=== PATIENT | female | born 1970 | race African-American/Black ===

== ENCOUNTER → 2022-03-19 09:42 | Outpatient (CLI) | payer BC, SELFPAY ==
--- NOTE | ~2022-03-19 | MMUS_ITS ---
EXAMINATION: MM diagnostic elizabeth BI w grace, US breast RT complete, US breast LT limited HISTORY: History of fibrocystic disease. TECHNIQUE: Additional 3-D tomosynthesis images of the breasts were performed and synthetic 2-D images were generated. CAD analysis was submitted and interpreted. High resolution complete right and limit ed left breast ultrasound was performed. COMPARISON: Comparison to multiple prior studies sequentially, with oldest reviewed study dated 08/07. BREAST PARENCHYMAL COMPOSITION: Breast composed of scattered areas of fibroglandular density FINDINGS: MAMMOGRAPHIC FINDINGS: Bilateral breast asymmetries are stable. No new masses, calcifications or architectural distortion. ULTRASOUND: Complete right breast ultrasound: At 4:00, 3 cm from the nipple, there is an oval cystic mass measuri ng up to 1 cm, most likely benign cyst or focally dilated duct. At 6:00 near the arterial lobe there is a mildly prominent ducts. At 10:00, 7 cm from the nipple, there is a round hypoechoic mass with en hanced or transmission measuring 6 mm, compatible with a complicated cyst. Also at this location ther e is a similar appearing 9 mm hypoechoic mass with low level internal echoes, most likely complicated cysts. At 10:00, 5 cm from the nipple there is a oval hypoechoic mass measuring 9 x 5 x 7 mm, most l ikely benign cyst. At 10:00, near the areola there is an oval hypoechoic mass measuring 9 x 2 x 3 mm with posterior enhancement, parallel orientation and low-level internal echoes, most likely benign. Left breast ultrasound: At 12:00, 4 cm from the nipple there is a 6 mm cyst. Also at this location th ere is a oval circumscribed hypoechoic mass with parallel orientation measuring 6 mm maximum dimensio n, likely benign. At 1:00 near the arterial lobe there is an 8 mm cyst. IMPRESSION: 1. Probable benign bilateral sonographic masses. Stable bilateral mammogram. 2. Recommend 6 month follow-up limited bilateral breast ultrasound. BI-RADS category 3, probably benign findings. Reviewed, dictated and finalized at location B. IMPRESSION: 1. Probable benign bilateral sonographic masses. Stable bilateral mammogram. 2. Recommend 6 month follow-up limited bilateral breast ultrasound. BI-RADS category 3, probably benign findings. IMPRESSION: 1. Probable benign bilateral sonographic masses. Stable bilateral mammogram. 2. Recommend 6 month follow-up limited bilateral breast ultrasound. BI-RADS category 3, probably benign findings.
== END ==
DX: R92.8 Other abnormal and inconclusive findings on diagnostic imaging of breast (principal)
CPT/HCPCS: 76641; 76642; 77062; 77066; G0279

== ENCOUNTER 2023-09-29 18:25 | Emergency (ER) | payer OTHER, SELFPAY ==
--- NOTE | ~2023-09-29 | XR_ITS ---
XR foot RT min 3V 09/29/2023 19:11 INDICATION: Right foot pain PROCEDURE: 4 views right foot COMPARISON: No prior studies for comparison. FINDINGS: Fracture, dislocation or subluxation is not identified. Lisfranc joint intact. There is a s mall degenerative plantar calcaneal spur. The soft tissues appear within normal limits. No foreign b odies are identified. IMPRESSION: 1: NO ACUTE BONE OR JOINT ABNORMALITY IDENTIFIED. Reviewed, dictated and finalized at location A.
--- NOTE | ~2023-09-29 | XR_ITS ---
XR lumbar spine 2-3V 09/29/2023 19:10 Indication: Low back pain Procedure: Status post fall. Comparison: No prior studies for comparison. Findings: There is disc narrowing, endplate sclerosis and marginal osteophytosis at L4-5. There is fa cet hypertrophy at L4-5 and L5-S1. No acute fracture or traumatic malalignment. There is mild levosco liosis. Sacral foramen are symmetric. Impression: 1: Moderate-severe lumbar spondylosis at L4-5. Reviewed, dictated and finalized at location A. Impression: 1: Moderate-severe lumbar spondylosis at L4-5.
[2023-09-29 18:34] VITALS: BP 112/67; PULSE 64; RESP 20; TEMP 36.7; O2SAT 100
--- NOTE | 2023-09-29 18:35 | ED.GENADULT ---
HPI - General Adult General Chief complaint: Extremity Injury, Lower Stated complaint: back and ankle pain from fall Source: patient, RN notes reviewed and old records reviewed Mode of arrival: ambulatory Limitations: no limitations History of Present Illness HPI narrative: 52-year-old female presents to [facility] with complaint of lower back pain and right ankle pain that started Tuesday after patient tripped and fell on room bronchi slow. Patient states has not tried anything for pain. Patient denies any LOC, hitting head, neck pain. Related Data Home Medications Medication Instructions Recorded Confirmed escitalopram oxalate 10 mg tablet 10 mg PO DAILY 09/29/23 09/29/23 oxcarbazepine 300 mg tablet See Rx Instructions .Route .COMPLEX 09/29/23 09/29/23 Allergies Allergy/AdvReac Type Severity Reaction Status Date / Time levetiracetam [From [facility]] AdvReac Dizziness Verified 09/29/23 18:55 HYDROMORPHONE HCL Allergy Mild Hives / Uncoded 03/22/22 09:44 Red Face trubelene Allergy Mild Unknown Uncoded 09/29/23 18:55 Review of Systems Constitutional: Constitutional: Reports no additional constitutional complaints, Denies body ache(s), Denies chills, Denies fatigue, Denies fever(s) and Denies headache(s) Eyes: Eyes: Reports no additional eye complaints and Denies blurry vision ENT: Reports system reviewed and no additional complaints, except as documented, Denies vertigo, Denies dizziness, Denies ear discharge, Denies otalgia, Denies facial pain, Denies headache(s), Denies nasal congestion, Denies nasal discharge, Denies sinus pain, Denies sinus pressure and Denies sore throat Cardiovascular: Cardiovascular: Reports no additional cardiovascular complaints, Denies chest pain, Denies chest pain at rest, Denies rapid heart rate and Denies dyspnea Respiratory: Respiratory: Reports no additional respiratory complaints, Denies chest congestion, Denies cough, Denies pain on inspiration, Denies pain with cough and Denies dyspnea Gastrointestinal: Gastrointestinal: Denies abdominal pain, Denies diarrhea, Denies nausea and Denies vomiting Musculoskeletal: Musculoskeletal: Reports as per HPI and Reports back pain Comments: Right ankle pain Integumentary/Breasts: Skin/Breast: Denies rash Neurologic: Reports system reviewed and no additional complaints, except as documented, Denies vertigo, Denies dizziness and Denies headache(s) Endocrine: Endocrine: Denies fatigue PMFSH Comments At the time of my signature, I reviewed and agree with the nursing past medical, surgical, social, and family history. There is no relevant family history pertinent to the patient complaint. Exam Const: General: cooperative, healthy appearing, no acute distress and well nourished Nutritional Appearance: well nourished Orientation/consciousness: patient oriented x3 Limitations: no limitations HENMT: Head: normal to inspection and normocephalic Ears: external ears normal, TM's normal bilaterally, mastoids normal and Abnormal EAC present Face/Nose/Sinus: normal facial exam Face and sinus: normal facial exam Mouth: Yes Normal oral and palatal mucosa present, Yes oropharynx normal and Yes moist mucous membranes Throat: tonsils normal, uvula midline and no uvular edema Eyes: General: appearance normal, both eyes and all related structures Sclera: sclerae normal Pupils: Equal, round and reactive pupils present Resp: Effort & Inspection: normal respiratory effort, able to speak in complete sentences, no audible wheezes, no cough, no respiratory distress and no retractions Back/Spine/Pelvis: Back: no CVA tenderness, No mass, No erythema and No warmth Cervical Spine: normal cervical lordosis Thoracic/Lumbar Spine: thoraco-lumbar ROM normal, No straight leg raise negative bilaterally, No bend over test abnormal, No Lasegue's sign positive, No mass, No thoracic spinal tenderness, No lumbar spinal tenderness and other ( coccyx pain) Skin: General
== END 2023-09-29 19:30 | disposition home or self-care (01) ==
PROVIDERS: Emergency Provider Registered Nurse
DX: S20.229A Contusion of unspecified back wall of thorax, initial encounter (principal); S90.01XA Contusion of right ankle, initial encounter; W19.XXXA Unspecified fall, initial encounter
CPT/HCPCS: 72100; 73630; 99214; G0463